=== PATIENT | male | born 1935 | race Two or more races ===

== ENCOUNTER 2018-05-03 15:39 | Emergency (ER) | payer OTHER ==
[~2018-05-03] VITALS: Ht 177.8 cm; Wt 90.7 kg
[2018-05-03 16:38] LABS: Urine Bacteria NONE SEEN /hpf (None Seen); Urine Blood Negative /uL (Negative); Urine Hyaline Cast FEW /lpf (0 - 2); Urine Specific Gravity 1.009 (1.001-1.035); Urine WBC 1 /hpf (0 - 3)
[2018-05-03] MEDS ORDERED: DEXTROSE 50% SYRINGE 50 ML IV ONE (16:43)
[2018-05-03 16:46] LABS: Basophils # (auto) 0 uL; Basophils % (auto) 0.5 % (0.0-2.0); Eosinophils # (auto) 0.1 uL; Eosinophils % (auto) 1.5 % (0.0-7.0); Hematocrit 47.7 % (41.0-53.0); Hemoglobin 15.9 g/dL (13.5-17.5); Lymphocytes # (auto) 1.4 uL; Lymphocytes % (auto) 14.7 % (10.0-50.0); Mean Corpuscular Hemoglobin 31.1 pg (28.0-32.0); Mean Corpuscular Hgb Conc. 33.2 g/dL (32.0-36.0); Mean Corpuscular Volume 93.4 fL (80.0-100.0); Monocytes % (auto) 10.7 % (0.0-12.0); Neutrophils % (auto) 72.6 % (37.0-80.0); Platelet Count (auto) 277 10^3/uL (140-450); Red Cell Distribution Width 14.8 % (11.8-14.3); White Blood Cell 9.7 10^3/uL (4.4-10.8)
[2018-05-03 16:50] LABS: Alcohol, Urine < 3.0 mg/dL (0-5); Amphetamine Screen, Urine NEGATIVE (NEGATIVE); Barbiturate Scree,Urine NEGATIVE (NEGATIVE); Benzodiazephine Screen, Urine NEGATIVE (NEGATIVE); Cannabinoid Screen, Urine NEGATIVE (NEGATIVE); Cocaine Screen, Urine NEGATIVE (NEGATIVE); Opiate Scree,Urine NEGATIVE (NEGATIVE); Phencyclidine Screen, Urine NEGATIVE (NEGATIVE)
[2018-05-03] MEDS ORDERED: SODIUM CHLORIDE 0.9% 1,000 ML IVB ONE (17:04)
[2018-05-03 17:07] LABS: Alanine Aminotransferase 283 U/L (16-61); Albumin 3.2 g/dL (3.4-5.0); Anion Gap 6 (5-15); Aspartate Aminotransferase 171 U/L (15-37); BUN/Creatinine Ratio 8.9; Blood Alcohol < 3.0 mg/dL (0-5); Blood Urea Nitrogen 11 mg/dL (7-18); Calcium 8.5 mg/dL (8.5-10.1); Carbon Dioxide 29 mmol/L (21-32); Chloride 104 mmol/L (98-107); GFR African American 72 mL/min; GFR Non-African American 60 mL/min; Sodium 139 mmol/L (136-145)
[2018-05-03] MEDS ORDERED: DEXTROSE (50%) 50ML SYRG IV ONE ×2 (17:15→19:15)
[2018-05-03 17:21] LABS: Alkaline Phosphatase 1158 U/L (45-117); Bilirubin, Total 4.7 mg/dL (0.2-1.0); Total Protein 7.1 g/dL (6.4-8.2)
[2018-05-03 17:23] LABS: Glucose 32 mg/dL (74-106); Potassium 2.4 mmol/L (3.5-5.1)
[2018-05-03] MEDS ORDERED: SODIUM CHLORIDE 0.9% 1,000 ML IV ONE (17:30)
[2018-05-03 17:37] LABS: Urine Bacteria NONE SEEN /hpf (None Seen); Urine Blood Negative /uL (Negative); Urine Hyaline Cast FEW /lpf (0 - 2); Urine WBC 2 /hpf (0 - 3)
[2018-05-03] MEDS ORDERED: D5W/SOD CHLO 0.9% 1,000 ML IV ONE (18:00)
[2018-05-03 18:02] LABS: INR 0.88 (0.9-1.15); Partial Thromboplastin Time 32.9 sec (23.78-33.04); Prothrombin Time 9.5 sec (9.27-12.13)
[2018-05-03] MEDS ORDERED: POTASSIUM CHL 20 Meq TABLET PO ONE ×2 (18:15)
[2018-05-03] MEDS ORDERED: cloNIDine HCL 0.1 MG TAB PO ONE (19:15)
[2018-05-03 21:04] VITALS: BP 146/67
== END 2018-05-03 22:46 | disposition home or self-care (01) ==
LOC: EDBD 15:39 → ER 15:39
DX: G93.41 Metabolic encephalopathy (principal); E87.6 Hypokalemia; E11.649 Type 2 diabetes mellitus with hypoglycemia without coma; I11.0 Hypertensive heart disease with heart failure; I50.9 Heart failure, unspecified; I48.91 Unspecified atrial fibrillation; R94.5 Abnormal results of liver function studies; E78.5 Hyperlipidemia, unspecified; Z88.0 Allergy status to penicillin; Z95.1 Presence of aortocoronary bypass graft; Z53.29 Procedure and treatment not carried out because of patient's decision for other reasons
CPT/HCPCS: 36415; 51702; 70450; 71045; 80053; 80307; 80320; 81001; 82962; 83735; 83880; 84484; 85025; 85610; 85730; 93005; 94761; 96361; 96374; 96376; 99284; J7030; J7042